=== PATIENT | female | born 1945 | race Caucasian/White ===

== ENCOUNTER 2022-09-10 08:00 | Outpatient (CLI) | payer MEDICARE, BC ==
--- NOTE | 2022-09-10 16:58 | XRAY Report ---
PROCEDURE: Shoulder 3 View RT INDICATIONS: RIGHT SHOULDER PAIN TECHNIQUE: 4 views of the shoulder were acquired. COMPARISON: None. FINDINGS: Bones: No fractures or dislocations. Moderate acromioclavicular joint osteoarthritic changes are se en with joint space narrowing, subchondral sclerosis and marginal osteophyte formation. Osteoarthriti c changes are also noted involving undersurface of acromium and adjacent superior lateral aspect of h umeral head. Mild to moderate glenohumeral joint osteoarthritic changes also seen. No suspicious bony lesions. Visualized ribs appear intact. Soft tissues: No suspicious soft tissue calcifications. IMPRESSION: Right shoulder joint osteoarthritic changes. No acute fracture or dislocation. No gross soft tissue abnormalities. Reviewed by: Serg Schwartz MD on 09/10/2022 4:57 PM PDT Approved by: Serg Schwartz MD on 09/10/2022 4:57 PM PDT Station ID: [id number]
== END 2022-09-10 23:59 | disposition home or self-care (01) ==
LOC: DI.WOS 08:00
PROVIDERS: ATTEND Orthopaedic Surgery
DX: M19.011 Primary osteoarthritis, right shoulder (principal)

== ENCOUNTER 2023-05-16 14:48 | Emergency (ER) | payer MEDICARE, BC ==
[2023-05-16 15:00] VITALS: BP 172/95
[2023-05-16 16:25] LABS: BASOPHILS % (AUTO) 0.8 %; EOSINOPHILS # (AUTO) 0.1 10^3/uL (0.0-0.7); EOSINOPHILS % (AUTO) 1.7 %; HCT - HEMATOCRIT 40.7 % (37.0-47.0); HGB - HEMOGLOBIN 13.3 g/dL (12.0-16.0); LYMPHOCYTES # (AUTO) 1.5 10^3/uL (1.5-3.5); LYMPHOCYTES % (AUTO) 30.9 %; MEAN CORPUSCULAR HEMOGLOBIN 31.8 pg (27.0-31.0); MEAN CORPUSCULAR HGB CONC 32.7 g/dL (32.0-36.0); MEAN CORPUSCULAR VOLUME 97.4 fL (81.0-99.0); MEAN PLATELET VOLUME 9.3 fL (7.9-10.8); MONOCYTES # (AUTO) 0.5 10^3/uL (0.0-1.0); MONOCYTES % (AUTO) 9.7 %; NEUTROPHILS # (AUTO) 2.7 10^3/uL (1.5-6.6); NEUTROPHILS % (AUTO) 56.7 %; PLT - PLATELET COUNT 278 10^3/uL (130-450); RED BLOOD COUNT 4.18 10^6/uL (4.20-5.40); WHITE BLOOD COUNT 4.7 x10^3/uL (4.8-10.8)
[2023-05-16 16:36] LABS: ALBUMIN/GLOBULIN RATIO 1.2 (1.0-2.2); BILIRUBIN,TOTAL 0.5 mg/dL (0.2-1.0); CALCIUM 8.9 mg/dL (8.5-10.3); CREATININE 0.7 mg/dL (0.4-1.0); TOTAL PROTEIN 7.4 g/dL (6.7-8.2)
[2023-05-16] MEDS ORDERED: HYDROcod/ACETAM 5/325 MG TABLET PO STA (17:24)
--- NOTE | 2023-05-16 17:27 | ED Physician Documentation ---
History of Present Illness - Stated complaint Stated Complaint: RT SIDE PX - Chief complaint Chief Complaint: General - History obtained from History obtained from: Patient, Family - History of Present Illness Timing: How many days ago (3) Pain level max: 7 Pain level now: 7 - Additonal information Additional information: 77-year-old female presents to the emergency room with right-sided chest wall pain, starts in her back and radiates to the right breast. She states her skin is very tender to the touch, described as burning. Has not had similar symptoms previously. No fevers. No chills. No trauma. No abdominal pain, nausea, vomiting. No shortness of breath. No cough. No congestion. Worse with p alpation, nothing makes it better. Patient also states that she has had some right low back pain ongoing for the past few weeks. Nonradiating. No loss of bowel or bladder control. No fall. No trauma. PNo palpitations. Review of Systems Constitutional: denies: Fever Ears: denies: Ear pain Nose: denies: Rhinorrhea / runny nose, Congestion Throat: denies: Sore throat Cardiac: denies: Chest pain / pressure, Palpitations Respiratory: denies: Dyspnea, Cough GI: denies: Abdominal Pain, Nausea, Vomiting, Diarrhea : denies: Dysuria Skin: denies: Rash Musculoskeletal: denies: Neck pain Neurologic: denies: Focal weakness, Numbness, Headache PD PAST MEDICAL HISTORY - Past Medical History Past Medical History: Yes Psych: Anxiety - Present Medications Home Medications: Ambulatory Orders Medication Instructions Recorded Confirmed HYDROcod/ACETAM 5/325 [Irons 5/325] 1 - 2 ea PO Q6H PRN #20 tablet 05/16/23 Valacyclovir HCl [Valtrex] 1,000 mg PO TID #21 tablet 05/16/23 - Allergies Allergies/Adverse Reactions: Allergies Allergy/AdvReac Type Severity Reaction Status Date / Time No Known Drug Allergies Allergy Verified 05/16/23 15:00 - Living Situation Living Arrangement: reports: At home - Social History Does the pt have substance abuse?: No - Family History Family history: reports: Non contributory PD ED PE NORMAL - Vitals Vital signs reviewed: Yes - General General: Alert and oriented X 3, No acute distress - HEENT HEENT: PERRL, Moist mucous membranes - Neck Neck: Supple, no meningeal sign - Cardiac Cardiac: RRR, Strong equal pulses - Respiratory Respiratory: No respiratory distress, Clear bilaterally - Abdomen Abdomen: Soft, Non tender, Non distended - Back Back: No CVA TTP, No spinal TTP - Derm Derm: Warm and dry - Extremities Extremities: No edema - Neuro Neuro: Alert and oriented X 3 - Psych Psych: Normal mood, Normal affect - Free text exam Free text exam: Patient has sensitivity to light touch to the skin on approximately the T6 dermatome on the right side. Does not cross midline. No rash. No crepitus. No ecchymosis. No skin changes. Results - Vitals Vitals: Vital Signs - 24 hr 05/16/23 14:55 Temperature 36.5 C Heart Rate 78 Respiratory 16 Rate Blood Pressure 172/95 H O2 Saturation 98 Oxygen O2 Source Room air - Labs Labs: Laboratory Tests 05/16/23 05/16/23 16:19 16:19 WBC 4.7 L RBC 4.18 L Hgb 13.3 Hct 40.7 MCV 97.4 MCH 31.8 H MCHC 32.7 RDW 12.0 Plt Count 278 MPV 9.3 Neut # (Auto) 2.7 Lymph # (Auto) 1.5 [place] # (Auto) 0.5 Eos # (Auto) 0.1 Baso # (Auto) 0.0 Absolute Nucleated RBC 0.00 Nucleated RBC % 0.0 Sodium 140 Potassium 4.0 Chloride 107 Carbon Dioxide 28 Anion Gap 5.0 L BUN 20 Creatinine 0.7 Estimated GFR (MDRD) 81 L Glucose 113 H Calcium 8.9 Total Bilirubin 0.5 AST 22 ALT 27 Alkaline Phosphatase 79 Total Protein 7.4 Albumin 4.0 Globulin 3.4 Albumin/Globulin Ratio 1.2 Lipase 30 PD Medical Decision Making - ED course Complexity details: reviewed results, considered differential (No cauda equina, no spinal epidural abscess, no fracture, no aortic dissection or evidence of aneursym rupture), d/w patient ED course: 77-year-old female with what appears to be zoster sine herpete. Skin is very sensitive to the touch. Feels like a burning pain, follows a single dermatome. We will place her on valacyclovir and pain medication. She also has some low back pain, no midline tenderness palpation or percussion. No step-off or deformity. No neurological deficits. No evidence of cauda equina, epidural abscess. No significant lab abnormalities. No evidence of biliary disease. Abdomen is soft, nontender nondistended. No evidence of rib fracture or indication for imaging. No evidence of PE. We will have her follow-up with her PCP for further care. Patient counseled regarding signs and symptoms for which I believe and urgent re-evaluation would be necessary. Patient with good understanding of and agreement to plan and is comfortable going home at this time This document was made in part using voice recognition software. While efforts are made to proofread this document, sound alike and grammatical errors may occur. Departure - Departure Disposition: Home, Self Care Clinical Impression: Shingles Qualifiers: Herpes zoster complications: without complications Qualified Code(s): B02.9 - Zoster without complications Condition: Good Instructions: ED Shingles Follow-Up: your,doctor in 1 week [Other] Prescriptions: HYDROcod/ACETAM 5/325 [Irons 5/325] 1 - 2 ea PO Q6H PRN #20 tablet PRN Reason: Pain Valacyclovir HCl [Valtrex] 1,000 mg PO TID #21 tablet Comments: It appears that you do have shingles today without a rash. This is called zoster sine herpete. We will trial you on antivirals and pain medication. Your prescriptions were sent to [facility] in [place]. I am prescribing a short course of narcotic pain medication for you. These are potentially dangerous and addictive medications that should be used carefully. These medications may constipate you. Take an edgx-dvx-vuyqpxm stool softener (docusate) twice daily with plenty of water while taking these medications. If you go 24 hours without a bowel movement, take axxy-llw-wolsbwz miralax, per package instructions. Do not drink or drive while taking these medications. If you received narcotic or sedating medications while in the emergency department, do not drive for 24 hours. Store this medication in a safe, secure place and out of reach of children. It is a violation of federal law to give or sell this medication to another person or to use in a manner other than prescribed. The ED will not refill narcotic prescriptions, including prescriptions lost or stolen. To dispose of unwanted medications: 1. [facility] at [address] in [place] has a medication drop box. They accept prescription medications (in pill form) Friday through Friday 9:00 a.m. to 5:00 p.m. 2. [facility] [employer] accepts prescription medications (in pill form only) for disposal year round. Call for more information. 3. Contact the [facility] for the next [facility] sponsored prescription drug collection event. , [phone], or [phone]; Discharge Date/Time: 05/16/23 17:34
== END 2023-05-16 17:34 | disposition home or self-care (01) ==
LOC: ED 14:48
DX: B02.9 Zoster without complications (principal)
CPT/HCPCS: 36415; 80053; 83690; 85025; 99283; A9270

== ENCOUNTER 2023-05-20 14:12 | Outpatient (CLI) | payer MEDICARE, BC ==
--- NOTE | 2023-05-20 16:27 | XRAY Report ---
PROCEDURE: Thoracic Spine 2 View INDICATIONS: CHEST PAIN RIGHT TECHNIQUE: 3 views of the thoracic spine were acquired. COMPARISON: None. FINDINGS: Bones: No fractures or dislocations. No suspicious bony lesions. 12 pairs of ribs are noted, and a ppear intact where visualized. Uyvg-cu-dynyswjw degenerative disc disease in the lower cervical spin e and throughout thoracic spine. Soft tissues: No paravertebral stripe thickening. IMPRESSION: Mild to moderate degenerative disc disease. Reviewed by: Megan Pastor MD on 05/20/2023 4:26 PM PDT Approved by: Megan Pastor MD on 05/20/2023 4:26 PM PDT Station ID: [id number]
--- NOTE | 2023-05-21 11:55 | XRAY Report ---
PROCEDURE: Ribs w/PA Chest RT INDICATIONS: RIGHT CHEST PAIN TECHNIQUE: 2 views of the right ribs were acquired, along with a single view chest. COMPARISON: None. FINDINGS: Surgical changes and devices: None. Bones and chest wall: No fractures or dislocations. No suspicious bony lesions. Overlying soft tis sues appear unremarkable. Lungs and pleura: No pleural effusions or pneumothorax. Lungs appear clear. Mediastinum: Mediastinal contours appear normal. Heart size is normal. IMPRESSION: No displaced rib fracture or pneumothorax. Reviewed by: Megan Pastor MD on 05/21/2023 11:54 AM PDT Approved by: Megan Pastor MD on 05/21/2023 11:54 AM PDT Station ID: [id number]
== END 2023-05-20 23:59 | disposition home or self-care (01) ==
LOC: DI.S 14:12
PROVIDERS: ATTEND Physician Assistant
DX: M51.34 Other intervertebral disc degeneration, thoracic region (principal)

== ENCOUNTER 2023-05-22 16:10 | Outpatient (CLI) | payer MEDICARE, BC ==
[2023-05-22] MEDS ORDERED: iohexoL-300 100 ML VIAL ONE (16:26)
[2023-05-22] MEDS ORDERED: iohexoL-300 100 ML VIAL IVP ONE (16:48)
--- NOTE | 2023-05-22 17:04 | CT Report ---
PROCEDURE: CHEST W INDICATIONS: RIGHT CHEST PAIN CONTRAST: 100mL Omni 300 TECHNIQUE: After the administration of intravenous contrast, 1 mm axial images were acquired from the pulmonary apices through the posterior costophrenic angles. Axial 5 mm soft tissue kernel reconstructions were performed as well as 8 mm axial MIP and coronal and sagittal 5 mm reformations. For radiation dose reduction, the following was used: automated exposure control, adjustment of mA and/or kV according to patient size. COMPARISON: Radiograph 05/20/2023. FINDINGS: Image quality: Excellent. Lungs and pleura: No consolidation. No pleural effusions. No pneumothorax. No suspicious pulmonary n odules which require follow up. Mediastinum: Heart size is normal. No pericardial effusion. No large vessel abnormality. No mediastin al adenopathy by size criteria. Chest wall and lower neck: No thyroid nodule which requires sonographic follow up. No axillary or sup raclavicular adenopathy by size. Bones: No aggressive osseous abnormality. Upper Abdomen: Fluid attenuating hepatic cyst. IMPRESSION: Normal chest CT. No displaced fracture, pneumothorax or contusion. Reviewed by: Yogi Brand on 05/22/2023 5:03 PM PDT Approved by: Yogi Brand on 05/22/2023 5:03 PM PDT Station ID: [id number]
== END 2023-05-22 16:11 | disposition home or self-care (01) ==
LOC: DI 16:10
PROVIDERS: ATTEND Physician Assistant
DX: R07.89 Other chest pain (principal)
CPT/HCPCS: 71260; Q9967